=== PATIENT | female | born 1965 | race Caucasian/White ===

== ENCOUNTER 2016-11-10 05:49 | Emergency (ER) | payer SELFPAY ==
[~2016-11-10] VITALS: Ht 167.6 cm; Wt 94.0 kg
[2016-11-10 05:55] VITALS: BP 147/86; PULSE 77; RESP 16; TEMP 97.8; O2SAT 97
[2016-11-10] MEDS ORDERED: AMOX500T PO (06:44)
--- NOTE | 2016-11-10 06:44 | PD ---
HPI Chief Complaint: ENT Complaint Time Seen by Provider: 06:37 Travel History International Travel<30 days: No Contact w/Intl Traveler<30days: No Traveled to known affect area: No History of Present Illness HPI 50-year-old woman presents to the emergency department for complaint of 3-4 days of cough congestion sore throat runny nose sinus pressure drainage headache and recent exposure to strep throat. Patient states this morning she did have some throat pain. Patient is also has sinus drainage. No yellow green discoloration. Cough has been nonproductive. No chest pain no flank pain no myalgias or arthralgias. Patient denies any chronic medical conditions. Patient rates her sinus pressure and throat pain 5/10 in intensity. Patient has not taken any medications for her symptoms. PFSH Past Medical History Narrative Medical Rheumatoid arthritis ovarian cyst herniorrhaphy tubal ligation tonsillectomy; tobacco use; nursing notes reviewed Arthritis: Yes (RA) Autoimmune Disease: Yes (RA) Diminished Hearing: No ?: Not LMP: 2007 Menopausal: Yes Ovarian Cysts: Yes Tubal Ligation: Yes Past Surgical History Abdominal Surgery: Yes (HERNIA REPAIR) Section: Yes (X 2) Tonsillectomy: Yes Other Surgery: Yes (HERNIA REPAIR) Social History Alcohol Use: No Tobacco Use: Yes (1/2 PK PER DAY FOR 20 YEARS) Substance Use: No Allergies-Medications (Allergen,Severity, Reaction): Coded Allergies: Tylenol #3 (Verified Allergy, Intermediate, Hives, 01/31/16) Azithromycin (Verified Adverse Reaction, Severe, 01/31/16) Reported Meds & Prescriptions Reported Meds & Active Scripts Active Amoxicillin 500 Mg Tab 500 Mg PO TID 10 Days Review of Systems Except as stated in HPI: all other systems reviewed are Neg General / Constitutional: Positive: Chills, No: Fever HENT: Positive: Sore Throat, Congestion Cardiovascular: No: Chest Pain or Discomfort Respiratory: Positive: Cough, No: Shortness of Breath Gastrointestinal: No: Vomiting, Abdominal Pain Genitourinary: No: Dysuria, Flank Pain Musculoskeletal: No: Myalgias, Arthralgias Neurologic: No: Weakness, Dizziness Psychiatric: No: Anxiety Hematologic/Lymphatic: No: Lymph Node Enlargement Physical Exam Narrative GENERAL: Well-developed well-nourished female in no acute distress no respiratory distress SKIN: Warm and dry. HEAD: Atraumatic. Normocephalic. EYES: Pupils equal and round. No scleral icterus. No injection or drainage. ENT: No nasal bleeding or discharge. Mucous membranes pink and moist. Airway is patent. Sinuses are mildly tender to percussion over the frontal and maxillary sinuses. Tympanic membranes no redness no dullness or loss of landmarks and no perforation NECK: Trachea midline. No JVD. Supple no meningismus no nuchal rigidity. CARDIOVASCULAR: Regular rate and rhythm. RESPIRATORY: No accessory muscle use. Clear to auscultation. Breath sounds equal bilaterally. GASTROINTESTINAL: Abdomen soft, non-tender, nondistended. Hepatic and splenic margins not palpable. MUSCULOSKELETAL: Extremities without clubbing, cyanosis, or edema. No obvious deformities. NEUROLOGICAL: Awake and alert. No obvious cranial nerve deficits. Motor grossly within normal limits. Five out of 5 muscle strength in the arms and legs. Normal speech. PSYCHIATRIC: Appropriate mood and affect; insight and judgment normal. Data Data Last Documented VS Vital Signs Date Time Temp Pulse Resp B/P Pulse Ox O2 Delivery O2 Flow Rate FiO2 11/10/16 06:13 20 11/10/16 06:11 11/10/16 05:55 97.8 77 97 Orders Amoxicillin (Trimox) (11/10/16 06:45) [facility] Medical Decision Making Medical Screen Exam Complete: Yes Emergency Medical Condition: Yes Medical Record Reviewed: Yes Differential Diagnosis Viral syndrome, sinusitis, pharyngitis, influenza, pneumonia Narrative Course Patient with minimal focality on physical exam; recent exposure to strep pharyngitis; patient will be started on oral penicillin for sinusitis and recent exposure to strep. Patient is satisfied with this plan. Patient stable for outpatient management encouraged to increase fluid hydration to take ibuprofen/Advil/Motrin as tolerated as needed for fever or pain associated with inflammation Diagnosis Primary Impression: Acute sinusitis Referrals: Primary Care Physician call for appointment Patient Instructions: General Instructions Additional Instructions: Increase fluid hydration Monitor temperature every 4 hours with thermometer and take as needed ibuprofen/ Advil/Motrin as often as every 6-8 hours as needed for fever 100.4F or greater or for pain associated with inflammation Complete course of antibiotic as prescribed Follow-up with your primary care provider Return to the emergency department for any concerns or change in condition Med/Other Pt SpecificInfo: Prescription(s) given Scripts Amoxicillin 500 Mg [id number] Mg PO TID 10 Days Ref 0 Prov:Teena Carver MD 11/10/16 Disposition: 01 DISCHARGE HOME Condition: Stable Teena Carver MD Nov 10, 2016 06:44
[2016-11-10] MEDS ORDERED: AMOXICILLIN (TRIHYDRATE) 500 MG CAP PO ONE (06:45)
== END 2016-11-10 07:00 | disposition home or self-care (01) ==
LOC: PHED 05:49
DX: J01.90 Acute sinusitis, unspecified (principal); N83.209 Unspecified ovarian cyst, unspecified side; M06.9 Rheumatoid arthritis, unspecified; F17.210 Nicotine dependence, cigarettes, uncomplicated
CPT/HCPCS: 99283

== ENCOUNTER 2017-03-06 06:06 | Emergency (ER) | payer SELFPAY ==
[~2017-03-06] VITALS: Ht 170.2 cm; Wt 94.0 kg
[~2017-03-06 06:06] MED LIST: AMOX500T PO
[2017-03-06 06:07] VITALS: BP 141/90; PULSE 80; RESP 16; TEMP 98.2; O2SAT 96
[2017-03-06 06:18] VITALS: BP 141/90; PULSE 80; RESP 16; TEMP 98.2
--- NOTE | 2017-03-06 06:36 | PD ---
HPI Chief Complaint: ENT Complaint Time Seen by Provider: 06:28 Travel History International Travel<30 days: No Contact w/Intl Traveler<30days: No Traveled to known affect area: No History of Present Illness HPI 51-year-old female presents to the emergency department by private transportation for complaint of 3 days of sinus pressure and drainage. Patient states that she has episodes of sinus inflammation fluid behind her ears and sore throat. Patient's had mild dry nonproductive cough. Patient's had no fever or chills. Patient states temperature elevation of maybe 100F the other day. Patient is been taking no antipyretics. Patient has been taking combination cold medication [id number] without relief. Patient reports that her brother told her she needs to be checked out since that time she is here. Patient denies any chronic medical conditions. Patient takes no medications on a regular basis a prescription medications. Previous surgeries include herniorrhaphy. Patient does smoke cigarettes. No report of chest pain pleuritic chest pain productive cough shortness of breath referred neck jaw back shoulder arm pain. Overall discomfort 4/10 in intensity primarily affecting the left ear. Patient states at times she has some intermittent dizziness but does not report headache visual disturbance change in mentation change in speech upper or lower extremity numbness tingling or weakness. PFSH Past Medical History Narrative Medical Arthritis, herniorrhaphy, tubal ligation, tobaccoism; nursing notes reviewed Arthritis: Yes (RA) Autoimmune Disease: Yes (RA) Diminished Hearing: No Tetanus Vaccination: Unknown Influenza Vaccination: No ?: Not Menopausal: Yes Ovarian Cysts: Yes Tubal Ligation: Yes Past Surgical History Abdominal Surgery: Yes (HERNIA REPAIR) Section: Yes Tonsillectomy: Yes Other Surgery: Yes (HERNIA REPAIR) Social History Alcohol Use: No Tobacco Use: Yes (6 cigarettes/daily) Substance Use: No Allergies-Medications (Allergen,Severity, Reaction): Coded Allergies: Tylenol #3 (Verified Allergy, Intermediate, Hives, 03/06/17) Azithromycin (Verified Adverse Reaction, Severe, 03/06/17) Reported Meds & Prescriptions Reported Meds & Active Scripts Active Amoxicillin 500 Mg Tab 500 Mg PO TID 10 Days Review of Systems Except as stated in HPI: all other systems reviewed are Neg General / Constitutional: No: Fever, Chills HENT: Positive: Sore Throat, Congestion, Earache Cardiovascular: No: Chest Pain or Discomfort Respiratory: Positive: Cough (dry nonproductive) Gastrointestinal: No: Nausea, Vomiting, Abdominal Pain Genitourinary: No: Flank Pain Musculoskeletal: No: Myalgias, Arthralgias Skin: No Rash Neurologic: No: Weakness Psychiatric: No: Anxiety Hematologic/Lymphatic: No: Lymph Node Enlargement Physical Exam Narrative GENERAL: Well-developed well-nourished female in no acute distress no respiratory distress SKIN: Warm and dry. HEAD: Atraumatic. Normocephalic. EYES: Pupils equal and round. No scleral icterus. No injection or drainage. ENT: No nasal bleeding or discharge. Mucous membranes pink and moist. Airway is patent. The posterior pharyngeal drainage redness edema erythema or exudative change. Tympanic membranes no redness no dullness or loss of landmarks. NECK: Trachea midline. No JVD. Supple. CARDIOVASCULAR: Regular rate and rhythm. RESPIRATORY: No accessory muscle use. Clear to auscultation. Breath sounds equal bilaterally. GASTROINTESTINAL: Abdomen soft, non-tender, nondistended. Hepatic and splenic margins not palpable. MUSCULOSKELETAL: Extremities without clubbing, cyanosis, or edema. No obvious deformities. NEUROLOGICAL: Awake and alert. No obvious cranial nerve deficits. Motor grossly within normal limits. Five out of 5 muscle strength in the arms and legs. Normal speech. PSYCHIATRIC: Appropriate mood and affect; insight and judgment normal. Data Data Last Documented VS Vital Signs Date Time Temp Pulse Resp B/P Pulse Ox O2 Delivery O2 Flow Rate FiO2 03/06/17 06:20 16 03/06/17 06:18 98.2 80 141/90 03/06/17 06:07 96 MDM Medical Decision Making Medical Screen Exam Complete: Yes Emergency Medical Condition: Yes Medical Record Reviewed: Yes Differential Diagnosis Viral syndrome, upper respiratory infection, sinusitis, environmental/seasonal allergies, dizziness; unlikely TIA/CVA Narrative Course Patient with out evidence of febrile illness and unlikely bacterial infection at this time history and exam consistent with possible viral syndrome versus exacerbation of sinus symptoms related to environmental or seasonal allergies. Patient will be encouraged to use [id number] Flonase, Afrin, Zyrtec and as needed Mucinex as well as increase fluid hydration. Patient is encouraged to use acetaminophen/Tylenol as needed for fever 100.4F or greater or as tolerated ibuprofen/Advil/Motrin 6-8 hours as needed for fever 100.4F or greater or for pain associated with inflammation. Patient encouraged to follow- up with her primary care provider. Diagnosis Primary Impression: Viral URI with cough Referrals: Primary Care Physician call for appointment Patient Instructions: General Instructions Additional Instructions: Increase fluid hydration Monitor temperature with thermometer and take as needed acetaminophen/Tylenol every 4 hours for fever 100.4F or greater and/or ibuprofen/Advil/Motrin 600 mg as often as every 6 hours or 800 mg as often as every 8 hours as needed for fever 100.4F or greater or for pain associated with inflammation May use [id number] Afrin decongestant nasal spray 1 spray to each nostril up to twice daily for up to 3 days to decrease sinus congestion and pressure May use [id number] Flonase as per package directions to help with decreasing mucous membrane inflammation May use Zyrtec 10 mg once daily as antihistamine as needed May use as needed as tolerated Mucinex or Robitussin for cough and mucus production Follow-up with primary care provider Return to the emergency department for any concerns or change in condition such as productive cough or fever Med/Other Pt SpecificInfo: No Meds Exist/No RX given Disposition: 01 DISCHARGE HOME Condition: Stable Teena Carver MD Mar 06, 2017 06:36
== END 2017-03-06 06:45 | disposition home or self-care (01) ==
LOC: PHED 06:06
DX: J06.9 Acute upper respiratory infection, unspecified (principal); R05 Cough; Z72.0 Tobacco use
CPT/HCPCS: 99282

== ENCOUNTER 2017-11-05 13:22 | Emergency (ER) | payer SELFPAY ==
[~2017-11-05] VITALS: Ht 172.7 cm; Wt 88.7 kg
[2017-11-05 13:36] VITALS: BP 172/117; PULSE 92; RESP 16; TEMP 98.4; O2SAT 96
--- NOTE | 2017-11-05 15:21 | PD ---
HPI Chief Complaint: Skin Problem Time Seen by Provider: 14:59 Travel History International Travel<30 days: No Contact w/Intl Traveler<30days: No Traveled to known affect area: No History of Present Illness HPI 51-year-old female states that yesterday she noticed a bump to her right private parts. She states today it got more painful. She states she has also been having cough and congestion and chills over the past couple of days. She denies any other concurrent complaints. She denies specific modifying factors other than the area hurts if you touch it. She denies recurrent history of this. Quality is sharp. Severity is moderate. PFSH Past Medical History Arthritis: Yes (RA) Autoimmune Disease: Yes (RA) Diminished Hearing: No Tetanus Vaccination: Unknown Influenza Vaccination: No ?: Not Menopausal: Yes Ovarian Cysts: Yes Tubal Ligation: Yes Past Surgical History Abdominal Surgery: Yes (HERNIA REPAIR) Section: Yes Tonsillectomy: Yes Other Surgery: Yes (HERNIA REPAIR) Social History Alcohol Use: No Tobacco Use: Yes (1/2PPD cigarettes/daily) Substance Use: No Allergies-Medications (Allergen,Severity, Reaction): Coded Allergies: codeine (Unverified Allergy, Intermediate, Hives, 11/05/17) azithromycin (Unverified Adverse Reaction, Severe, 11/05/17) Reported Meds & Prescriptions Reported Meds & Active Scripts Active No Active Prescriptions or Reported Medications Review of Systems Except as stated in HPI: all other systems reviewed are Neg Physical Exam Narrative GENERAL: 51-year-old female in no apparent distress SKIN: Focused skin assessment warm/dry. HEAD: Atraumatic. Normocephalic. EYES: Pupils equal and round. No scleral icterus. No injection or drainage. ENT: No nasal bleeding or discharge. Mucous membranes pink and moist. posterior oropharynx without exudate or erythema, external auditory canals without erythema, bilateral TMs clear NECK: Trachea midline. No JVD. No meningeal signs CARDIOVASCULAR: Regular rate and rhythm. No murmur appreciated. RESPIRATORY: No accessory muscle use. Clear to auscultation. Breath sounds equal bilaterally. GASTROINTESTINAL: Abdomen soft, non-tender, nondistended. GENITOURINARY: External genitalia with right labia majora with less than a fourth a centimeter lesion that appears folliculitis like without underlying abscess or overlying cellulitis NEUROLOGICAL: Awake and alert. No obvious cranial nerve deficits. Motor grossly within normal limits. Normal speech. PSYCHIATRIC: Appropriate mood and affect; insight and judgment normal. Data Data Last Documented VS Vital Signs Date Time Temp Pulse Resp B/P (MAP) Pulse Ox O2 Delivery O2 Flow Rate FiO2 11/05/17 13:36 98.4 92 16 172/117 (135) 96 Orders Orders Chest, Pa & Lat (11/05/17 ) Influenzae A/B Antigen (11/05/17 15:07) Acetaminophen (Tylenol) (11/05/17 15:45) MDM Medical Decision Making Medical Screen Exam Complete: Yes Emergency Medical Condition: Yes Medical Record Reviewed: Yes (Past history confirmed) Interpretation(s) cxr no acute flu no acute Differential Diagnosis Folliculitis, abscess, upper respiratory infection, pneumonia Narrative Course will check chest x-ray and influenza and placed on antibiotic for folliculitis ed workup no emergent, will provide script for folliculitis, Patient denies any new complaints, all questions answered. Patient knows that follow up is incumbent on them and to return to the emergency room immediately if new or worsening symptoms develop. Patient given strict return precautions, vitals reviewed and are normal, agrees to further workup as an outpatient. Diagnosis Primary Impression: Folliculitis Additional Impression: Upper respiratory infection Qualified Codes: J06.9 - Acute upper respiratory infection, unspecified Patient Instructions: General Instructions Additional Instructions: return as needed, follow with primary for recheck on friday, warm compresses to area twice a day Med/Other Pt SpecificInfo: Prescription(s) given Scripts Sulfamethoxazole-Trimethoprim (Bactrim DS) 800-160 Mg Tab 1 TAB PO BID for Infection for 7 Days, #14 TAB 0 Refills Prov: Vanessa Jara MD 11/05/17 Disposition: 01 DISCHARGE HOME Condition: Stable Vanessa Jara MD Nov 05, 2017 15:21
--- NOTE | 2017-11-05 15:29 | RADRPT ---
EXAM DATE/TIME: 11/05/2017 15:12 [facility] COMPARISON: No previous studies available for comparison. INDICATIONS : Cough for 4 days MEDICAL HISTORY : None. SURGICAL HISTORY : None. ENCOUNTER: Initial ACUITY: 4 - 6 days PAIN SCORE: 0/10 LOCATION: Bilateral chest FINDINGS: Minimal discoid atelectasis and/or fibrotic scarring is noted within the left lung base. The right johana ng is clear. The heart is normal. The pulmonary vascular pattern is normal. CONCLUSION: Minimal discoid atelectasis and/or fibrotic scarring within the left lung base. Sunday Vincent MD on November 05, 2017 at 15:27 Board Certified Radiologist. This report was verified electronically.
[2017-11-05] MEDS ORDERED: ACETAMINOPHEN 325 MG TAB PO ONE (15:45)
[2017-11-05] MEDS ORDERED: BACT800T5 PO (15:56)
[2017-11-05 16:14] VITALS: BP 162/98
== END 2017-11-05 16:16 | disposition home or self-care (01) ==
LOC: PHED 13:22
DX: L73.9 Follicular disorder, unspecified (principal); J06.9 Acute upper respiratory infection, unspecified; M06.9 Rheumatoid arthritis, unspecified; F17.210 Nicotine dependence, cigarettes, uncomplicated; Z88.5 Allergy status to narcotic agent; Z88.8 Allergy status to other drugs, medicaments and biological substances
CPT/HCPCS: 71046; 87804; 99284

== ENCOUNTER 2018-03-06 18:45 | Emergency (ER) | payer SELFPAY ==
[~2018-03-06] VITALS: Ht 172.7 cm; Wt 87.2 kg
[~2018-03-06 18:45] MED LIST changes: -AMOX500T PO; +BACT800T5 PO
[2018-03-06 18:57] VITALS: BP 169/91; PULSE 71; RESP 16; TEMP 98.3; O2SAT 97
[2018-03-06] MEDS ORDERED: MOME17I EACH NARE (19:01)
[2018-03-06] MEDS ORDERED: AMOX500C PO (19:01)
--- NOTE | 2018-03-06 19:01 | PD ---
HPI Chief Complaint: Cold / Flu Symptoms Time Seen by Provider: 18:58 Travel History International Travel<30 days: No Contact w/Intl Traveler<30days: No Traveled to known affect area: No History of Present Illness HPI 52-year-old female presents to the emergency department with complaint of sinus pressure, nasal congestion, sore throat, ear pressure, occasional cough for the past 3-4 days. Denies fevers, vomiting. Denies chest pain, shortness breath, wheezing. Has been using [id number] allergy medication and cold/cough medicine with normal symptom management. No one else with similar symptoms. No known aggravating or relieving factors. Symptoms are mild in severity. No primary care provider. Allergies to codeine. Has no other medical complaints. No other modifying factors or associated signs and symptoms. PFSH Past Medical History Arthritis: Yes (RA) Autoimmune Disease: Yes (RA) Diminished Hearing: No ?: Not Menopausal: Yes Ovarian Cysts: Yes Tubal Ligation: Yes Past Surgical History Abdominal Surgery: Yes (HERNIA REPAIR) Section: Yes Tonsillectomy: Yes Other Surgery: Yes (HERNIA REPAIR) Social History Alcohol Use: No Tobacco Use: Yes (1/2PPD cigarettes/daily) Substance Use: No Allergies-Medications (Allergen,Severity, Reaction): Coded Allergies: codeine (Verified Allergy, Intermediate, Hives, 03/06/18) Reported Meds & Prescriptions Reported Meds & Active Scripts Active Nasonex Nasal Pease (Mometasone Furoate) 50 Mcg/Act Naspr 2 Pease EACH NARE DAILY PRN Amoxicillin 500 Mg Cap 500 Mg PO BID 10 Days Review of Systems Except as stated in HPI: all other systems reviewed are Neg Physical Exam Narrative GENERAL: Well-nourished, well-developed feet patient, in no acute distress; afebrile, nontoxic SKIN: Warm and dry. No rash. HEAD: Atraumatic. Normocephalic. Frontal and maxillary sinus tenderness on palpation. EYES: Pupils equal and round. No scleral icterus. No injection or drainage. ENT: Mucosa pink and moist. Oropharynx without erythema, exudates, tonsillar edema.. No uvular edema. No uvular, palatal, or tonsillar deviation. Airway patent. EARS: Bilateral pinnae and external canals appear within normal limits. Bilateral tympanic membranes without erythema, dullness or perforation. NECK: Trachea midline. No lymphadenopathy. CARDIOVASCULAR: Regular rate and rhythm. No murmur appreciated. RESPIRATORY: No accessory muscle use. Clear to auscultation. Breath sounds equal bilaterally. GASTROINTESTINAL: Rounded. MUSCULOSKELETAL: No obvious deformities. No clubbing. No cyanosis. No edema. NEUROLOGICAL: Awake and alert. Oriented 3. No obvious cranial nerve deficits. Motor grossly within normal limits. Normal speech. Moves all extremities. 5/5 strength to all extremities. PSYCHIATRIC: Appropriate mood and affect; insight and judgment normal. Data Data Last Documented VS Vital Signs Date Time Temp Pulse Resp B/P (MAP) Pulse Ox O2 Delivery O2 Flow Rate FiO2 03/06/18 19:00 16 97 Room Air 03/06/18 18:57 98.3 71 169/91 (117) Orders Orders Ed Discharge Order (03/06/18 19:01) [facility] Medical Decision Making Medical Screen Exam Complete: Yes Emergency Medical Condition: Yes Medical Record Reviewed: Yes Differential Diagnosis Sinusitis, upper respiratory infection, viral illness Narrative Course 52-year-old female physical exam and HPI consistent with acute sinusitis. Patient is afebrile and nontoxic-appearing. Denies fever, vomiting. Amoxicillin, Nasonex nasal spray prescribed for home. Instructed patient to follow up with primary care provider. Patient verbalizes understanding and agreement with treatment plan. Patient is medically cleared and stable for discharge. Discussed reasons to return to the emergency department. Patient agrees with treatment plan. The patients vital signs are stable and the patient is stable for outpatient follow-up and treatment. Patient discharged home, stable and in no acute distress. Diagnosis Primary Impression: Acute sinusitis Qualified Codes: J01.90 - Acute sinusitis, unspecified Referrals: [facility] Primary Care Physician Patient Instructions: General Instructions, Sinusitis (ED), Upper Respiratory Infection (ED) Additional Instructions: Antibiotics as prescribed and complete full course Ibuprofen or Tylenol as instructed and as needed for fever/pain Dheq-afl-rrxblpw cough and cold medications as directed and as needed for symptom management Get plenty of sleep/rest Drink plenty of fluids to prevent dehydration; popsicles and Gatorade Use an air humidifier/turn off ceiling fans Follow-up with primary care provider Return immediately to the emergency department with worsening of symptoms Med/Other Pt SpecificInfo: Prescription(s) given Scripts Mometasone Nasal Pease (Nasonex Nasal Pease) 50 Mcg/Act Naspr 2 SPRAY EACH NARE DAILY Y for NASAL CONGESTION, #1 BOTTLE 0 Refills Prov: Agustina Reyes 03/06/18 Amoxicillin (Amoxicillin) 500 Mg Cap 500 MG PO BID for Infection for 10 Days, #20 CAP 0 Refills Prov: Agustina Reyes 03/06/18 Disposition: 01 DISCHARGE HOME Condition: Stable Agustina Reyes Mar 06, 2018 19:01
== END 2018-03-06 19:13 | disposition home or self-care (01) ==
LOC: PHEFT 18:45
DX: J01.90 Acute sinusitis, unspecified (principal); M06.9 Rheumatoid arthritis, unspecified; F17.210 Nicotine dependence, cigarettes, uncomplicated
CPT/HCPCS: 99283